=== PATIENT | male | born 1995 | race Caucasian/White ===

== ENCOUNTER 2017-04-12 13:15 | Emergency (ER) | payer OTHER ==
[~2017-04-12] VITALS: Ht 170.1 cm; Wt 99.8 kg
[~2017-04-12 13:15] MED LIST: ABILIFY5 MG PO; AMOXIL250 MG/5 M PO; BACTRIM DS 8001 TA1 PO; CARBATROL300 MG PO; CHILD'S CHEW1 CTB PO; CLARITIN-D 12 H1 TAB PO; CLARITIN5 MG/5 ML PO; DOXYCYCLINE HY100 M3 PO; KEPPRA500 MG PO; PREDNISONE10 MG PO; ROBITUSSIN AC 110 ML PO; ULTRAM50 MG PO; ZOLOFT50 MG PO
[2017-04-12] MEDS ORDERED: MEDROL DOSEPAK4 MG PO (13:30)
== END 2017-04-12 13:34 | disposition home or self-care (01) ==
LOC: ED 13:15
DX: T63.481A Toxic effect of venom of other arthropod, accidental (unintentional), initial encounter (principal); H93.8X2 Other specified disorders of left ear; Y92.9 Unspecified place or not applicable

== ENCOUNTER 2019-03-31 12:40 | Emergency (ER) | payer OTHER ==
[~2019-03-31] VITALS: Ht 167.6 cm; Wt 99.8 kg
[~2019-03-31 12:40] MED LIST changes: +MEDROL DOSEPAK4 MG PO; +Motrin,Rufen800 MG PO
[2019-03-31] MEDS ORDERED: CEPHALEXIN500 M1 PO (15:20)
== END 2019-03-31 16:30 | disposition home or self-care (01) ==
LOC: ED 12:40
DX: S01.81XA Laceration without foreign body of other part of head, initial encounter (principal); E78.00 Pure hypercholesterolemia, unspecified; I10 Essential (primary) hypertension; Z79.899 Other long term (current) drug therapy; W20.8XXA Other cause of strike by thrown, projected or falling object, initial encounter; Y93.89 Activity, other specified; Y92.89 Other specified places as the place of occurrence of the external cause; Y99.8 Other external cause status

== ENCOUNTER 2021-08-09 23:46 | Emergency (ER) | payer OTHER ==
[~2021-08-09] VITALS: Ht 170.1 cm; Wt 99.8 kg
[~2021-08-09 23:46] MED LIST changes: +CEPHALEXIN500 M1 PO
[2021-08-10 00:27] LABS: BASO # 0.1 10*3/uL (0.0-0.1); BASO % 0.8 % (0.0-1.0); EOS # 0.2 10*3/uL (0.0-0.4); EOS % 1.7 % (1.0-4.0); HEMATOCRIT 45.9 % (42.0-52.0); LYMPH # 2.4 10*3/uL (1.3-4.4); MEAN CELL VOLUME 84.1 fl (80.0-94.0); MEAN CORPUSCULAR HGB 27.8 pg (27.0-31.0); MEAN CORPUSCULAR HGB CONC 33.1 g/dl (33.0-37.0); MEAN PLATELET VOLUME 10.5 fl (9.6-12.3); MONO # 0.8 10*3/uL (0.1-1.0); MONO % 6.7 % (3.0-9.0); NEUT # 8.3 10*3/uL (2.3-7.9); NEUT % 70.5 % (47.0-73.0); PLATELET COUNT AUTOMATED 219 10*3/uL (130-400); RED BLOOD COUNT 5.46 10*6/uL (4.50-5.90); RED CELL DISTRI WIDTH 13.5 % (0-14.5); WHITE BLOOD COUNT 11.8 10*3/uL (4.8-10.8)
[2021-08-10 00:41] LABS: ALBUMIN 4.1 gm/dl (3.1-4.5); ALKALINE PHOSPHATASE 105 U/L (45-117); BUN 12 mg/dl (7-24); CHLORIDE 105 mmol/L (98-107); CREATININE 1.06 mg/dL (0.70-1.30); SGOT/AST 22 IU/L (3-35); SGPT/ALT 33 U/L (12-78); SODIUM 140 mmol/L (136-145)
[2021-08-10] MEDS ORDERED: PREDNISONE20 M1 PO (02:22)
== END 2021-08-10 02:45 | disposition home or self-care (01) ==
LOC: ED 23:46
PROVIDERS: Internal Medicine
DX: B34.9 Viral infection, unspecified (principal); Z20.822 Contact with and (suspected) exposure to COVID-19

== ENCOUNTER 2024-05-22 18:48 | Emergency (ER) | payer OTHER ==
[~2024-05-22] VITALS: Ht 170.1 cm; Wt 102.1 kg
[~2024-05-22 18:48] MED LIST changes: +PREDNISONE20 M1 PO
[2024-05-22] MEDS ORDERED: SODIUM CHLORIDE 0.9% 1,000 ML IV ONE (18:55)
[2024-05-22] MEDS ORDERED: ceFAZolin sodium/sodium chlor 20 ML IV ONE (18:55)
[2024-05-22] MEDS ORDERED: Tdap Vaccine 0.5 ML SYR (Adult Vaccine) IM ONE (18:55)
[2024-05-22] MEDS ORDERED: MORPHINE Sulfate 2 MG/ML SYR IV ONE ×2 (19:00→21:55)
== END 2024-05-22 22:47 | disposition short-term general hospital (02) ==
LOC: ED 18:48
DX: S41.111A Laceration without foreign body of right upper arm, initial encounter (principal); J45.909 Unspecified asthma, uncomplicated; F90.9 Attention-deficit hyperactivity disorder, unspecified type; Z98.890 Other specified postprocedural states; W01.198A Fall on same level from slipping, tripping and stumbling with subsequent striking against other object, initial encounter; Y93.K1 Activity, walking an animal; Y92.89 Other specified places as the place of occurrence of the external cause; Y99.8 Other external cause status

== ENCOUNTER → 2025-04-17 | Outpatient (CLI) | payer OTHER | LOC: RAD 12:30 | PROVIDERS: ATTEND Family Medicine | DX: R06.02 Shortness of breath (principal); R05.9 Cough, unspecified ==